=== PATIENT | male | born 1985 | race Caucasian/White ===

== ENCOUNTER 2025-03-06 09:05 | Outpatient (OUT) | payer OTHER, SELFPAY ==
--- OUTSIDE RECORDS SUMMARY | 2025-01-09 07:00 | XMS_ITS ---
Author Organization [facility] Address [address] [place] [address] Care Team Providers Care Clothes Shaker Name Role Phone Miguelangel Juliana Primary Care Provider [phone] Gabi Urbina [phone] REASON FOR VISIT BH F/U Encounters Encounter Location Date Provider Diagnosis [facility] [address] [place] [address] 01/09/2025 Juliana Means Plan Of Treatment Next Appt Details Provider Name:uJliana Means , 03/28/2025 10:00:00 AM, [address], [place], [address], Provider Name:Leah Cain, 0 04/04/2025 08:00:00 AM, [address] , [place], [address], Progress Notes * BERLIN JENNINGS ADOB:1985 (39 yo M)Acc No.[id number]:01/09/2025 BH F/U - Patient Patient: BERLIN MARION Wale Provider: BRITTNY Peacock :1985 A ge:39 Y S ex:Male Date:01/09/2025 Address:[address], [address] , [id number] Subjective: * Chief Complaints: * 1 . BH F/U. Objective: Therapeutic Interventions: Assessment: Plan: * Images: Care Plan Details* * Electronic signature of BRITTNY Johnson on 03/06/2025 at 09:08 AM EDT Sign off status: Pending * Provider: BRITTNY Peacock Date: 01/09/2025 Generated for Augustus saxena/Chandrakant/Missael on: 0 03/06/2025 09:08 AM EDT
--- OUTSIDE RECORDS SUMMARY | 2025-02-28 06:00 | XMS_ITS ---
Author Organization [facility] Address [address] [place] [address] Care Team Providers Care Telephone Services Sales Representative Name Role Phone MiguelangelShivJuliana Primary Care Provider Gabi Urbina [phone] REASON FOR VISIT F/U Encounters Encounter Location Date Provider Diagnosis [facility] [address] [place] [address] 02/28/2025 Juliana Means Major depressive disorder, recurrent episode with anxious distress F33.9 and Mood disorder F39 Assessments Encounter Date Diagnosis (ICD Code) Assessment Notes Treatment Notes Treatment Clinical Notes Section Notes 02/28/2025 Major depressive disorder, recurrent episode with anxious distress (ICD-10 - F33.9) 02/28/2025 Mood disorder (ICD-10 - F39) Plan Of Treatment Next Appt Details Provider Name:Juliana Means , 03/28/2025 10:00:00 AM, [address] [place], [address], Provider Name:Leah Cox, 0 04/04/2025 08:00:00 AM, [address] [facility] [place], [address], Progress Notes * BERLIN JENNINGS ADOB:1985 (39 yo M)Acc No.[id number]:02/28/2025 F/U - Patient Patient: BERLIN MARION Provider: BRITTNY Peacock :1985 A ge:39 Y S ex:Male Date:02/28/2025 Address:[address] [place] [address], [id number] Subjective: * Chief Complaints: * 1 . BH F/U. Objective: Therapeutic Interventions: Assessment: * Assessment: 1. M ajor depressive disorder, recurrent episode with anxious distress - F33.9 (Primary) ? 2 . M ood disorder - F39 Plan: * Images: Care Plan Details* Problem B H F/U Progress Note Present At Appointment: P atient Session Type: F elina to Face Start Time/End Time: 1 008 1150 42 mins Mental Status Examination Mood: C omments :engaged logical Affect: C ongruent;Appropriate Insight/Judgment: G ood Thought Process: U nremarkable Speech: N ormal Current Mental Status Normal : O riented x 4 Intervention Risk Assessment: P T denies all areas of risk. No contrary indications present.;Low risk Therapy Modality: b ehavior modification;solution focused Interventions: b uild rapport;cognitive challenging;cognitive refocusing;cognitive reframing;encourage expression of needs;exploration of relationship problems;exploration of coping skills;emotion regulation;healthy boundaries;supportive reflection;reflective listening;psycho-educationComments :Rapport building by BRITTNY allowed pt to reflect on last mth since session. Help Pt with pros cons of life choices and reframed perspective Response to Intervention: P t Progress: l ow Plan Recommended Frequency of Macario atment: b i-weekly Homework: e motion regulation;utilize supports;prosocials Medication Change: N /A * Electronic signature of BRITTNY Johnson on 03/06/2025 at 09:08 AM EDT Sign off status: Pending * Provider: BRITTNY Peacock Date: 0 02/28/2025 Generated for Augustus saxena/Chandrakant/Missael on: 03/06/2025 09:08 AM EDT
--- OUTSIDE RECORDS SUMMARY | 2025-03-06 09:09 | XMS_ITS | Encounter Summary ---
Author Organization [facility] Address [address] [place] [address] Phone Care Team Providers Care Account Representative Name Role Phone Catherine Quiroz MD Primary Care Provider [phone] Catherine Quiroz MD Primary Care Provider [phone] Brian Urbina DO Primary Care Provider [phone] Encounter Details Date Type Department Care Team (Late st Contact Info) Description 11/17/2023 Scanned Document [facility] [address] [place] [id number] Scanning, Generic Provider Social History Tobacco Use Types Packs/Day Years Used Date Smoking Tobacco: Never Smokeless Tobacco: Former Chew Alcohol Use Standard Drinks/Week Comments Not Asked 0 (1 standard drink = 0.6 oz pur e alcohol) socially Sex and Gender Information Value Date Recorded Sex Assigned at Not on file Legal Sex Male 5:16 AM EST Gender Identity Not on file Sexual Orientation Not on file documented as of this encounter Plan of Treatment Upcoming Encounters Date Type Department Care Team (Late st Contact Info) Description 09/28/2025 3:00 PM EST Office Visit [facility] [address] [place] [address] Mike Chavira MD [address] [place] [address] documented as of this encounter Visit Diagnoses Not on filedocumented in this encounter Care Teams Account Representative Relationship Specialty Start Date End Date Catherine Quiroz MD [address] [facility] [place] [address] PCP - General 09/14/19 12/21/23 Catherine Quiroz MD [address] [facility] [facility] [place] [address] PCP - General Family Medicine 12/22/23 02/02/25 Brian Urbina DO [address] [place] [address] PCP - General Family Medicine 02/03/25 documented as of this encounter
--- OUTSIDE RECORDS SUMMARY | 2025-03-06 09:09 | XMS_ITS | Clinical Summary ---
Author Organization [facility] Address [address] [place] [address] Phone Care Team Providers Care Customer Engineering Specialist Name Role Phone CiaraBrian morgan Primary Care Provider [phone] Allergies No known active allergies Medications cholecalciferol (Vitamin D-3) 50 mcg (2,000 unit) capsule Take 1 capsule (50 mcg) by mouth 2 times a day. Active colestipol (Colestid) 1 gram tablet Take 1 tablet (1 g) by mouth 2 times a day. Active cyclobenzaprine (Flexeril) 10 mg tablet Take 1 tablet (10 mg) by mouth 3 times a day. 2 Active dicyclomine (Bentyl) 20 mg tablet Take 1 tablet (20 mg) by mouth 3 times a day. Active loperamide (Imodium A-D) 2 mg capsule Take 1 capsule (2 mg) by mouth if needed. Active ocrelizumab (Ocrevus) 30 mg/mL Infuse 20 mL (600 mg) into a venous catheter every 6 months. twice a year Active ondansetron (Zofran) 4 mg tablet Take 2 tablets (8 mg) by mouth if needed. Active pantoprazole (ProtoNix) 40 mg EC tablet Take 1 tablet (40 mg) by mouth once daily. 1 Active multivit-min/fe rrous fumarate (MULTI VITAMIN ORAL) Take 1 tablet by mouth once daily. Active naproxen sodium (Anaprox) 550 mg tablet Take 1 tablet (550 mg) by mouth once daily as needed for mild pain (1 - 3). Active ubrogepant (Ubrelvy) 100 mg tablet tablet Take 1 tablet (100 mg) by mouth once daily. Active hydrOXYzine pamoate (Vistaril) 50 mg capsule Take 1 capsule (50 mg) by mouth every 6 hours if needed. Active ARIPiprazole (Abilify) 15 mg tablet Take 1 tablet (15 mg) by mouth once daily. Active tamsulosin (Flomax) 0.4 mg 24 hr capsule Take 1 capsule (0.4 mg) by mouth once daily. Active atomoxetine (Strattera) 60 mg capsule Take 1 capsule (60 mg) by mouth once daily. Swallow capsule whole; do not open. If opened accidentally, do not touch eyes; wash hands immediately (product is an eye irritant). Active FLUoxetine (PROzac) 10 mg capsule Take 1 capsule (10 mg) by mouth early in the morning.. 5 Active Myrbetriq 50 mg tablet extended release 24 hr 24 hr tablet Take 1 tablet (50 mg) by mouth once daily. Active QUEtiapine (SEROquel) 25 mg tablet Take 1 tablet (25 mg) by mouth once daily at bedtime. Active midodrine (Proamatine) 5 mg tabletIndicatio ns:H/O orthostatic hypotension Take 1 tablet (5 mg) by mouth 3 times daily (morning, midday, late afternoon). 270 tablet 3 5 026 Active midodrine (Proamatine) 5 mg tabletIndicatio ns:H/O orthostatic hypotension Take 1 tablet (5 mg) by mouth 3 times daily (morning, midday, late afternoon). 5 025 Discontin ued(Reord er) Active Problems Problem Noted Date Diagnosed Date Adult BMI 33.0-33.9 kg/sq m 12/22/2023 Never smoked tobacco 12/22/2023 Autonomic failure 06/16/2023 Dizziness 06/16/2023 Dyspnea on exertion 06/16/2023 H/O orthostatic hypotension 06/16/2023 Multiple sclerosis (Multi) 06/16/2023 Palpitations 06/16/2023 Migraine 06/16/2023 Resolved Problems Problem Noted Date Diagnosed Date Resolved Date Class 2 obesity with body ma ss index (BMI) of 35.0 to 35.9 in adult 06/16/2023 06/17/2023 Encounters Date Type Department Care Team Description 03/03/[address] [address] Quita Eagle LPN H/O orthostatic hypotension 02/03/2025 11:20 AM EDT Office Visit [address] [address] Mike Chavira MD H/O orthostatic hypotension (Primary Dx); Palpitations; Adult BMI 33.0-33.9 kg/sq m; Multiple sclerosis (Multi); Autonomic failure; Dizziness; Never smoked tobacco 02/03/2025 Travel 01/30/2025 Scanned Document [facility] [address] [place] [id number] Scanning, Generic Provider from Last 3 Months Immunizations Immunization Administration Dates Next Due Flu vaccine (IIV4), preservative free *Check age /dose* 06/02/2022 Influenza, seasonal, injectable 06/25/2022 Family History Medical History Relation Name Comments Heart attack Father Nephrolithiasis Father Diabetes Mother Hyperlipidemia Mother Hypertension Mother Thrombosis Mother heart problem Mother Relation Name Status Comments Father Mother Social History Tobacco Use Types Packs/Day Years Used Date Smoking Tobacco: Never Smokeless Tobacco: Former Chew Tobacco Cessation:Counseling Given: Not Answered Alcohol Use Standard Drinks/Week Comments Yes 0 (1 standard drink = 0.6 oz pur e alcohol) socially Sex and Gender Information Value Date Recorded Sex Assigned at Not on file Legal Sex Male 5:16 AM EST Gender Identity Not on file Sexual Orientation Not on file Last Filed Vital Signs Vital Sign Reading Time Taken Comments Blood Pressure 98/80 02/03/2025 11:42 AM EDT Pulse 64 02/03/2025 11:38 AM EDT Temperature - - Respiratory Rate - - Oxygen Saturation - - Inhaled Oxygen Concentration - - Weight 144 kg (317 lb 6.4 oz) 02/03/2025 11:38 A M EDT Height 200.7 cm (6' 7 ) 02/03/2025 11:38 AM EDT Body Mass Index 35.76 02/03/2025 11:38 AM EDT Plan of Treatment Upcoming Encounters Date Type Department Care Team (Late st Contact Info) Description 09/28/2025 3:00 PM EST Office Visit [facility] [address] [place] [address] Mike Chavira MD [address] [place] [address] Health Maintenance Due Date Last Done Comments MMR Vaccines (1 of 1 - Standard series) 1985 Varicella Vaccines (1 of 2 - 13+ 2-dose series) 1997 Hepatitis C Screening 2002 Hepatitis B Vaccines (1 of 3 - 19+ 3-dose series) 2003 DTaP/Tdap/Td Vaccines (2 - Tdap) 05/17/2005 05/16/2005 Diabetes Screening 06/27/2022 06/27/2021 COVID-19 Vaccine ( season) 2024 07/01/2023, 06/02/2022, 09/03/2021, Additional history exists Yearly Adult Physical 10/13/2025 10/12/2024 Lipid Panel 01/30/2030 01/30/2025 Zoster Vaccines (1 of 2) 2034 Influenza Vaccine Completed 10/12/2024, , 06/25/2022, Additional history exists HIV Screening Completed 01/30/2025 HIB Vaccines Aged Out No longer eligi ble based on patient's age to complete this topic HPV Vaccines Aged Out No longer eligi ble based on patient's age to complete this topic Hepatitis A Vaccines Aged Out No long er eligible based on patient's age to complete this topic IPV Vaccines Aged Out No longer eligi ble based on patient's age to complete this topic Meningococcal Vaccine Aged Out No wendy mariah eligible based on patient's age to complete this topic Pneumococcal Vaccine: Pediatrics and At-Risk Adult Patients Aged Out No longer eligible based on patient's age to complete this topic Rotavirus Vaccines Aged Out No longer eligible based on patient's age to complete this topic Insurance [facility] Care Teams Customer Engineering Specialist Relationship Specialty Start Date End Date Brian Urbina DO [address] [place] [address] PCP - General Family Medicine 02/03/25
--- OUTSIDE RECORDS SUMMARY | 2025-03-06 09:09 | XMS_ITS | Encounter Summary ---
Author Organization [facility] Address [address] [place] [address] Phone Care Team Providers Care Pipe Fitter Ammonia Name Role Phone Catherine Quiroz MD Primary Care Provider [phone] Brian Urbina DO Primary Care Provider [phone] Encounter Details Date Type Department Care Team (Late st Contact Info) Description 02/25/2024 Scanned Document [facility] [address] [place] [id number] Scanning, Generic Provider Social History Tobacco Use Types Packs/Day Years Used Date Smoking Tobacco: Never Smokeless Tobacco: Former Chew Alcohol Use Standard Drinks/Week Comments Yes 0 [...] Description 09/28/2025 3:00 PM EST Office Visit [facility] [address] [facility] [address] [place] [address] Mike Chavira MD [address] [facility] [address] [place] [address] documented as of this encounter Visit Diagnoses Not on filedocumented in this encounter Care Teams Pipe Fitter Ammonia Relationship Specialty Start Date End Date Catherine Quiroz MD [address] [place] [address] PCP - General Family Medicine 12/22/23 02/02/25 Brian Urbina DO [address] [place] [address] PCP - General Family Medicine 02/03/25 documented as of this encounter
--- OUTSIDE RECORDS SUMMARY | 2025-03-06 09:09 | XMS_ITS | Patient Health Record ---
Author Organization [facility] Address [address] [place] [address] Care Team Providers Care Membership Coordinator Name Role Phone Juliana Means Primary Care Provider Ciara Gabi Unavailable [phone] Leah Cain Unavailable [phone] Allergies Allergen (clinical drug ingredient) Drug/Non Drug Allergy documented on EMR Reaction Allergy Type Onset Date Status Pollen Pollen Unknown Allergy Active Reason For Referral No Information Medications Medication SIG (Take, Route, Frequency, Duration) Notes Start Date End Date Status Reglan 10 MG 1 tablet Orally four times a day (qid) Not-Taking Dicyclomine HCl 20 MG 1 tablet Orally Th ree times a day Active Flaxseed Oil Not-Lamonte ing Potassium Gluconate 550 MG 1 tablet Orally daily Not-Taking Strattera 25 MG 1 capsule Orally Onc e a day for 30 day(s) 02/25/2023 Not-Taking QUEtiapine Fumarate 25 MG 1 tablet at be dtime Orally Once a day 09/05/2024 Active Vitamin D3 Active Colestid Active Atomoxetine HCl 60 MG 1 capsule Orally O nce a day Active Pantoprazole Sodium 40 MG 1 tablet Orall y Once a day Active Sentry Active pyRIDostigmine [place] 60 MG 1 tablet Orally twice a day (bid) Active Midodrine HCl 5 MG 2tablet Orally as needed Active Ocrevus 300 MG/10ML as directed Intravenous once a year Active Verapamil HCl ER 180 MG 1 tablet Orally Once a day Active Ubrelvy 100 MG 1 tablet Orally as needed (prn) Active Biotin Not-Taking Cyclobenzaprine HCl 10 MG 1 tablet at be dtime as needed Orally as needed (prn) Active Ondansetron 4 MG 1 tablet on the tong ue and allow to dissolve Orally twice a day (bid) as needed (prn) Active Loperamide HCl 2 MG 2 tablet Orally twic e a day (bid) Active FLUoxetine HCl 10 MG 1 capsule Orally On ce a day for 30 days 07/12/2024 Active Naproxen 500 MG 1 tablet with food o r milk Orally Twice a day Active Colestipol HCl 1 GM 2 tablets Orally daily Active hydrOXYzine Pamoate 50 MG 1 to 2 capsule s Orally every six hours for 30 days Active ARIPiprazole 15 MG 1 tablet Orally Once a day for 90 days Active busPIRone HCl 15 MG 1 tablet Orally Twic e a day Not-Taking Social History Tobacco Use: Social History Observation Description Date Details (start date - stop date) Former Smoker NA - NA Tobacco Screen: Question Answer Notes Are you a: former smoker How long has it been since you last smoked? 6-12 months Alcohol Screening: Question Answer Notes Did you have a drink containing alcohol in the p ast year? No Points 0 Interpretation Negative Depression Screening (PHQ-9): Question Answer Notes Little interest or pleasure in doing things Near ly every day Feeling down, depressed, or hopeless Nearly ever y day Trouble falling or staying asleep, or sleeping t oo much Nearly every day Feeling tired or having little energy Nearly oli ry day Poor appetite or overeating Nearly every day Feeling bad about yourself-o r that you are a failure or have let yourself or your family down Nearly every day Trouble concentrating on thi ngs, such as reading the newspaper or watching television Nearly every day Moving or speaking so slowly that other people could have noticed. Or the opposite being so fidgety or restless that you have been moving around a lot more than usual Not at all Thoughts that you would be b ghislaine off , or of hurting yourself in some way Not at all Total Score 21 Intepretation Severe Depression Problems Problem Type SNOMED Code ICD Code Onset Dates Problem Status W/U Status Risk Notes Problem Mood disorder (06900588) Mood disorder (F39) Active confirmed Problem Obese class II (36465932330753 5) BMI 35.0-35.9,adult (Z68.35) Active confirmed Problem Body mass index 30.00 to 34.99 (85308310023949 7) BMI 34.0-34.9,adult (Z68.34) Active confirmed Problem Obese class I (57459460108274 7) BMI 33.0-33.9,adult (Z68.33) Active confirmed Problem BMI 30+ - obesity (384879065) BMI 32.0-32.9,adult (Z68.32) Active confirmed Problem Body mass index 30.00 to 34.99 (79926241901269 7) BMI 31.0-31.9,adult (Z68.31) Active confirmed Problem Body mass index 30+ - obesity (620182131) BMI 30.0-30.9,adult (Z68.30) Active confirmed Problem Recurrent major depression (38746795) Major depressive disorder, recurrent episode with anxious distress (F33.9) Active confirmed Vital Signs Heart Rate 89 /min 01/03/2025 Blood pressure diastolic 66 mm Hg 01/03/2025 Oximetry 97 % 01/03/2025 Height 6 ft 7 inches in 01/03/2025 Blood pressure systolic 116 mm Hg 01/03/2025 Weight 310.2 lbs 01/03/2025 BMI 34.94 kg/m2 01/03/2025 Encounters Encounter Location Date Provider Diagnosis [facility] [address] [place] [address] 04/13/2024 Leah Cain Mood disorder [address] [place] [address] 07/01/2024 Leah Cain Mood disorder [address] [place] [address] 07/26/2024 Leah Cain [facility] [address] [place] [address] 08/18/2024 Leah Cain Mood disorder [address] [place] [address] 09/02/2024 Leah Cain Mood disorder [address] [facility] [address] [place] [address] 09/05/2024 Leah Cain Mood disorder [address] [place] [address] 09/21/2024 Leah Cain Mood disorder [facility] [address] [place] [address] 11/14/2024 Leah Cain Mood disorder [address] [place] [address] 12/01/2024 Leah Cain Mood disorder [place] [address] [place] [address] 12/26/2024 Leah Cain Mood disorder [place] [address] [place] [address] 01/24/2025 Leah Cain Mood disorder [place] [address] [place] [address] 01/31/2025 Leah Cain Mood disorder [place] [address] [place] [address] 02/10/2025 Leah Cain Mood disorder [place] [address] [place] [address] 02/21/2025 Juliana Means [place] [address] [place] [address] 04/12/2024 Juliana Means Major depressive disorder, recurrent episode with anxious distress F33.9 [facility] [address] [place] [address] 04/26/2024 Juliana Means Major depressive disorder, recurrent episode with anxious distress F33.9 and Mood disorder [place] [address] [place] [address] 02/28/2025 Juliana Means Major depressive disorder, recurrent episode with anxious distress F33.9 and Mood disorder [address] [place] [address] 05/10/2024 Juliana Means Mood disorder [address] [place] [address] 05/31/2024 Juliana Means Major depressive disorder, recurrent episode with anxious distress F33.9 [facility] [address] [place] [address] 06/20/2024 Juliana Means Major depressive disorder, recurrent episode with anxious distress F33.9 [facility] [address] [place] [address] 07/05/2024 Juliana Means Mood disorder F39 and Major depressive disorder, recurrent episode with anxious distress F33.9 [facility] [address] [place] [address] 07/20/2024 Juliana Means Major depressive disorder, recurrent episode with anxious distress F33.9 [facility] [address] [place] [address] 08/03/2024 Juliana Means Major depressive disorder, recurrent episode with anxious distress F33.9 [facility] [address] [place] [address] 08/19/2024 Juliana Means Mood disorder F39 [facility] [address] [place] [address] 09/02/2024 Juliana Means Major depressive disorder, recurrent episode with anxious distress F33.9 [facility] [address] [place] [address] 09/20/2024 Juliana Means Major depressive disorder, recurrent episode with anxious distress F33.9 [facility] [address] [place] [address] 09/30/2024 Juliana Means Mood disorder F39 [facility] [address] [place] [address] 10/14/2024 Juliana Means Mood disorder F39 [facility] [address] [place] [address] 10/28/2024 Juliana Means Major depressive disorder, recurrent episode with anxious distress F33.9 [facility] [address] [place] [address] 11/24/2024 Juliana Means Major depressive disorder, recurrent episode with anxious distress F33.9 and Mood disorder F39 [facility] [address] [place] [address] 01/30/2025 Juliana Means Major depressive disorder, recurrent episode with anxious distress F33.9 [facility] [address] [address] 03/08/2024 Leah Cain Mood disorder F39 [facility] [place] [address] 05/03/2024 Leah Cain Mood disorder F39 and BMI 33.0-33.9,adult Z68.33 [facility] [address] [facility] [facility] [place] [address] 01/03/2025 Leah Cain Mood disorder F39 [facility] [address] [facility] [facility] [place] [address] 10/11/2024 Leah Cain Mood disorder F39 [facility] [address] [facility] [place] [address] 07/12/2024 Leah Cain Mood disorder F39 Assessments Encounter Date Diagnosis (ICD Code) Assessment Notes Treatment Notes Treatment Clinical Notes Section Notes 03/08/2024 Mood disorder (ICD-10 - F39) Recommended treatment for Bipolar disorder includes FDA approved and OFF label medications: second generation antipsychotics and mood stabilizers. Discussed life threatening side effect of Lamotrigine. Pt is to monitor for new skin rashes or sensation of a sunburn or itchiness or redness, mouth sores or sores in mucus membranes, and call provider immediately and or go to ER, and stop the medication. Second generation antipsychotic medications can cause headache, drowsiness, agitation, dizziness, nausea, or extrapyramidal symptoms such as tremors, muscle spasms, slowness of movement or jerking of muscles. The patient verbalizes understanding with all questions answered thoroughly and is in agreement with treatment plan. Continue current treatment. . Call for problems GOALS: . Maintain medication regimen _Improve mood stability _Improve anxiety control _Improve social and interpersonal functioning Patient/Guardian will call sooner if symptoms worsen. Patient understands to go to ER if needed if symptoms become severe. Crisis Intervention plan was discussed and agreed upon. Patient/Guardian will call 911 in case of emergency. Emergency contact information was provided to the patient/guardian. follow up 2 months Pharmacological management: . Alternative medication plans were discussed with the patient/guardian. All relevant side effects and potential adverse effects were discussed with the patient/guardian. Standard cautions and potential benefits were discussed. Patient/Guardian consented to the start/continuation of the treatment. 05/03/2024 Mood disorder (ICD-10 - F39) Recommended treatment for Bipolar disorder includes FDA approved and OFF label medications: second generation antipsychotics and mood stabilizers. Discussed life threatening side effect of Lamotrigine. Pt is to monitor for new skin rashes or sensation of a sunburn or itchiness or redness, mouth sores or sores in mucus membranes, and call provider immediately and or go to ER, and stop the medication. Second generation antipsychotic medications can cause headache, drowsiness, agitation, dizziness, nausea, or extrapyramidal symptoms such as tremors, muscle spasms, slowness of movement or jerking of muscles. The patient verbalizes understanding with all questions answered thoroughly and is in agreement with treatment plan. Continue current treatment. Call for problems . GOALS: . Maintain medication regimen _Improve mood stability _Improve anxiety control _Improve social and interpersonal functioning Patient/Guardian will call sooner if symptoms worsen. Patient understands to go to ER if needed if symptoms become severe. Crisis Intervention plan was discussed and agreed upon. Patient/Guardian will call 911 in case of emergency. Emergency contact information was provided to the patient/guardian. follow up 2 months. Pharmacological management: . Alternative medication plans were discussed with the patient/guardian. All relevant side effects and potential adverse effects were discussed with the patient/guardian. Standard cautions and potential benefits were discussed. Patient/Guardian consented to the start/continuation of the treatment. 07/12/2024 Mood disorder (ICD-10 - F39) Recommended treatment for Mood disorder includes FDA approved and OFF label medications: second generation antipsychotics and mood stabilizers. Discussed life threatening side effect of Lamotrigine. Pt is to monitor for new skin rashes or sensation of a sunburn or itchiness or redness, mouth sores or sores in mucus membranes, and call provider immediately and or go to ER, and stop the medication. Second generation antipsychotic medications can cause headache, drowsiness, agitation, dizziness, nausea, or extrapyramidal symptoms such as tremors, muscle spasms, slowness of movement or jerking of muscles. The patient verbalizes understanding with all questions answered thoroughly and is in agreement with treatment plan. Continue current treatment. Call for problems . GOALS: . Maintain medication regimen _Improve mood stability _Improve anxiety control _Improve social and interpersonal functioning Patient/Guardian will call sooner if symptoms worsen. Patient understands to go to ER if needed if symptoms become severe. Crisis Intervention plan was discussed and agreed upon. Patient/Guardian will call 911 in case of emergency. Emergency contact information was provided to the patient/guardian. follow up 3 months Pharmacological management: . Alternative medication plans were discussed with the patient/guardian. All relevant side effects and potential adverse effects were discussed with the patient/guardian. Standard cautions and potential benefits were discussed. Patient/Guardian consented to the start/continuation of the treatment. 10/11/2024 Mood disorder (ICD-10 - F39) Recommended treatment for Mood disorder includes FDA approved and OFF label medications: second generation antipsychotics and mood stabilizers. Discussed life threatening side effect of Lamotrigine. Pt is to monitor for new skin rashes or sensation of a sunburn or itchiness or redness, mouth sores or sores in mucus membranes, and call provider immediately and or go to ER, and stop the medication. Second generation antipsychotic medications can cause headache, drowsiness, agitation, dizziness, nausea, or extrapyramidal symptoms such as tremors, muscle spasms, slowness of movement or jerking of muscles. The patient verbalizes understanding with all questions answered thoroughly and is in agreement with treatment plan. Continue current treatment. . Call for problems . GOALS: . Maintain medication regimen _Improve mood stability _Improve anxiety control _Improve social and interpersonal functioning Patient/Guardian will call sooner if symptoms worsen. Patient understands to go to ER if needed if symptoms become severe. Crisis Intervention plan was discussed and agreed upon. Patient/Guardian will call 911 in case of emergency. Emergency contact information was provided to the patient/guardian. follow up 3 months Pharmacological management: . Alternative medication plans were discussed with the patient/guardian. All relevant side effects and potential adverse effects were discussed with the patient/guardian. Standard cautions and potential benefits were discussed. Patient/Guardian consented to the start/continuation of the treatment. 01/03/2025 Mood disorder (ICD-10 - F39) Recommended treatment for mood Based on DSM V, this patient meets the criteria for the diagnosis of: _ . Recommended treatment is: _ . The patient verbalizes understanding with all questions answered thoroughly and is in agreement with treatment plan. .disorder includes FDA approved and OFF label medications: second generation antipsychotics and mood stabilizers. Discussed life threatening side effect of Lamotrigine. Pt is to monitor for new skin rashes or sensation of a sunburn or itchiness or redness, mouth sores or sores in mucus membranes, and call provider immediately and or go to ER, and stop the medication. Second generation antipsychotic medications can cause headache, drowsiness, agitation, dizziness, nausea, or extrapyramidal symptoms such as tremors, muscle spasms, slowness of movement or jerking of muscles. Stable The patient verbalizes understanding with all questions answered thoroughly and is in agreement with treatment plan. Continue current treatment. Call for problems . GOALS: . Maintain medication regimen _Improve mood stability _Improve anxiety control _Improve social and interpersonal functioning Patient/Guardian will call sooner if symptoms worsen. Patient understands to go to ER if needed if symptoms become severe. Crisis Intervention plan was discussed and agreed upon. Patient/Guardian will call 911 in case of emergency. Emergency contact information was provided to the patient/guardian. follow up 3 months Pharmacological management: . Alternative medication plans were discussed with the patient/guardian. All relevant side effects and potential adverse effects were discussed with the patient/guardian. Standard cautions and potential benefits were discussed. Patient/Guardian consented to the start/continuation of the treatment. 01/24/2025 Mood disorder (ICD-10 - F39) 01/30/2025 Major depressive disorder, recurrent episode with anxious distress (ICD-10 - F33.9) 01/31/2025 Mood disorder (ICD-10 - F39) 02/10/2025 Mood disorder (ICD-10 - F39) 10/14/2024 Mood disorder (ICD-10 - F39) 10/28/2024 Major depressive disorder, recurrent episode with anxious distress (ICD-10 - F33.9) 11/14/2024 Mood disorder (ICD-10 - F39) 07/20/2024 Major depressive disorder, recurrent episode with anxious distress (ICD-10 - F33.9) 08/03/2024 Major depressive disorder, recurrent episode with anxious distress (ICD-10 - F33.9) 08/18/2024 Mood disorder (ICD-10 - F39) 08/19/2024 Mood disorder (ICD-10 - F39) 09/02/2024 Major depressive disorder, recurrent episode with anxious distress (ICD-10 - F33.9) 09/02/2024 Mood disorder (ICD-10 - F39) 09/05/2024 Mood disorder (ICD-10 - F39) 09/20/2024 Major depressive disorder, recurrent episode with anxious distress (ICD-10 - F33.9) 09/21/2024 Mood disorder (ICD-10 - F39) 09/30/2024 Mood disorder (ICD-10 - F39) 05/03/2024 BMI 33.0-33.9,adult (ICD-10 - Z68.33) . Discussed lifestyle/diet changes to help improve BMI. Recommend increasing activity, reducing portion sizes, limiting carbohydrates, increasing protein as appropriate. Discussed referral to application software engineer if problem persists. . 05/10/2024 Mood disorder (ICD-10 - F39) 05/31/2024 Major depressive disorder, recurrent episode with anxious distress (ICD-10 - F33.9) 06/20/2024 Major depressive disorder, recurrent episode with anxious distress (ICD-10 - F33.9) 07/01/2024 Mood disorder (ICD-10 - F39) 07/05/2024 Mood disorder (ICD-10 - F39) 04/12/2024 Major depressive disorder, recurrent episode with anxious distress (ICD-10 - F33.9) 04/13/2024 Mood disorder (ICD-10 - F39) 04/26/2024 Major depressive disorder, recurrent episode with anxious distress (ICD-10 - F33.9) 11/24/2024 Major depressive disorder, recurrent episode with anxious distress (ICD-10 - F33.9) 12/01/2024 Mood disorder (ICD-10 - F39) 12/26/2024 Mood disorder (ICD-10 - F39) 02/28/2025 Major depressive disorder, recurrent episode with anxious distress (ICD-10 - F33.9) 04/26/2024 Mood disorder (ICD-10 - F39) 07/05/2024 Major depressive disorder, recurrent episode with anxious distress (ICD-10 - F33.9) 11/24/2024 Mood disorder (ICD-10 - F39) 02/28/2025 Mood disorder (ICD-10 - F39) 01/03/2025 Other Plan Of Treatment Next Appt Details Provider Name:Juliana Means , 03/28/2025 10:00:00 AM, [address], [place], [address], Provider Name:Leah Cain, 0 04/04/2025 08:00:00 AM, [address] [facility], [place], [address], Insurance Providers Payer Name Payer Address Payer Phone Subscriber Number Group Number Insured Name Patient Relationship to Insured Coverage Start Date Coverage End Date [employer] [place] Medicaid [address] CLAIMS DEPT [place] [phone] [id number] B[employer]ENN[place] Self - patient is the insured 3 [facility] [address] [place] [address] [phone] [id number] B[place]ENN[place] Self - patient is the insured 3 [facility] [employer] [address] [place] [address] [id number] BERLIN JENNINGS Self - patient is the insured 2 3 [employer] after [employer] [address] [place] [address] [phone] [id number] BERLIN JENNINGS Self - patient is the insured 2 3 Medical (General) History Medical History History ICD Code muscle spasm orthostatic dizziness acute hearing loss tinnitus, left insomnia, transient multiple sclerosis Surgical History Surgery Date(Month/Year) colonoscopy cyst removal right arm reset labrum repair t&A cholecystectomy
--- OUTSIDE RECORDS SUMMARY | 2025-03-06 09:09 | XMS_ITS | Encounter Summary ---
Author Organization [facility] Address [address] [place] [address] Phone Care Team Providers Care Roll Or Tape Edge Machine Operator Name Role Phone Catherine Quiroz MD Primary Care Provider [phone] Brian Urbina DO Primary Care Provider [phone] Encounter Details Date Type Department Care Team (Late st Contact Info) Description 01/30/2025 Scanned Document [facility] [address] [place] [id number] Scanning, Generic Provider Social History Tobacco Use [...] Office Visit [facility] [address] [facility] [address] [place] [address] Mike Chavira MD [address] [facility] [address] [place] [address] documented as of this encounter Visit Diagnoses Not on filedocumented in this encounter Care Teams Roll Or Tape Edge Machine Operator Relationship Specialty Start Date End Date Catherine Quiroz MD [address] [place] [address] PCP - General Family Medicine 12/22/23 02/02/25 Brian Urbina DO [address] [place] [address] PCP - General Family Medicine 02/03/25 documented as of this encounter
--- OUTSIDE RECORDS SUMMARY | 2025-03-06 09:09 | XMS_ITS | Encounter Summary ---
Author Organization [facility] Address [address] 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 No / Unsure 02/03/2025 11:09 AM EDT documented as of this encounter Plan of Treatment Upcoming Encounters Date Type Department Care Team (Late Contact Info) Description 09/28/2025 3:00 PM EST Office Visit [address] [place] [address] Mike Chavira MD [address] [facility] [address] [place] [address] documented as of this encounter Visit Diagnoses Diagnosis H/O orthostatic hypotension documented in this encounter Care Teams Java Developer Relationship Specialty Start Date End Date Brian Urbina DO [address] [place] [address] PCP - General Family Medicine 02/03/25 documented as of this encounter
--- OUTSIDE RECORDS SUMMARY | 2025-03-06 09:09 | XMS_ITS | Clinical Summary ---
Author Organization [facility] Address [address] [place] [address] Care Team Providers Care Loan Approver Name Role Phone Catherine Quiroz MD Primary Care Provider [phone] Allergies Active Allergy Reactions Criticality Noted Date Comments Pollen Extract Other (See Comments) 08/04/2018 sneezing Medications cyclobenzaprine (FLEXERIL) 10 MG tablet Take 10 mg by mouth 3 times daily as needed for Muscle spasms Active NONFORMULARY Take 2 tablets by mouth every 6 hours as needed Alleve Active promethazine (PHENERGAN) 25 MG tablet Take 1 tablet by mouth every 6 hours as needed for Nausea 30 tablet 08/19/2018 Active naproxen (NAPROSYN) 125 MG/5ML suspension Take 125 mg by mouth 2 times daily Active Active Problems Patient Care Coordination No te Formatting of this note is d ifferent from the original. MBS Checklist [facility] Weight Management Surgeon: Connie Procedure: sleeve ERAS Protocol Ht 6'7 Start wt470 ITEM ORDERED DONE NOTES LAB WORK- DONE TREATED [x] [] [] [] SLEEP STUDY CPAP [x] [] [] [] PSYCH EVAL [x] [] EGD H. PYLORI-TREATED STOOL ORDERED [x] [] [] [] [] [] GBUS [] [] UGI [] [] BMI GT 50, Give Lovenox Rx [x] [] CARDIAC CLEARANCE [] [] MEDICAL CLEARANCE [x] [] PULMONARY CLEARANCE [x] [] HEMATOLOGY CLEARANCE [] [] NEPHROLOGY CLEARANCE [] [] NEUROLOGY CLEARANCE [] [] UROLOGY CLEARANCE [] [] 2 WEEK PREOP DIET [x] [] 4 WEEK PREOP DIET [] [] LETTER OF MEDICAL NECESSITY [x] [] NICOTINE LEVEL AT 4 MONTHS [] [] PAIN MANAGEMENT CONSULT [] [] INTRO CLASS [x] [] EXERCISE LOG [x] [] PRE OPERATIVE CLASS [x] [] SUPPORT GROUP ATTENDED [x] [] 2 YEAR WEIGHT HISTORY [x] [] NUTRITION GOALS [x] [] SMOKING CESSATION [] [] OTHER: [] [] Problem Noted Date Diagnosed Date Cholelithiasis with biliary obstruction 08/17/20 18 Cholelithiasis and acute cholecystitis with obst ruction 08/17/2018 Chronic cholecystitis with calculus Family History Medical History Relation Name Comments Diabetes Mother High Blood Pressure Mother Relation Name Status Comments Father Alive Mother Alive Social History Tobacco Use Types Packs/Day Years Used Date Smoking Tobacco: Never Smokeless Tobacco: Current Chew Alcohol Use Standard Drinks/Week Comments Yes 0 (1 standard drink = 0.6 oz pur e alcohol) 1 drink weekly Sex and Gender Information Value Date Recorded Sex Assigned at Not on file Legal Sex Male 11:32 PM EST Gender Identity Not on file Sexual Orientation Not on file Last Filed Vital Signs Vital Sign Reading Time Taken Comments Blood Pressure 142/84 10/21/2018 2:51 PM EST Pulse 70 09/02/2018 1:02 PM EST Temperature 36.7 C (98 F) 09/02/2018 1:02 PM EST Respiratory Rate 20 09/02/2018 1:02 PM EST Oxygen Saturation 96% 08/19/2018 8:00 AM EST Inhaled Oxygen Concentration - - Weight 215 kg (474 lb) 10/21/2018 2:51 PM EST Height 200.7 cm (6' 7.02 ) 10/21/2018 2:51 PM ES T Body Mass Index 53.38 10/21/2018 2:51 PM EST Plan of Treatment Not on file Insurance MEDICAID [place] Advance Directives * Full Code (Latest Code Status on File) Date Activated Date Inactivated Comments 08/17/2018 1:57 PM 08/19/2018 11:41 AM Care Teams Loan Approver Relationship Specialty Start Date End Date Catherine Quiroz MD PCP - General Family Medicine 08/04/18
--- OUTSIDE RECORDS SUMMARY | 2025-03-06 09:09 | XMS_ITS | Encounter Summary ---
Author Organization [facility] Address [address] [place] [address] Phone Care Team Providers Care Solids Control Technician Name Role Phone Catherine Quiroz MD Primary Care Provider [phone] Catherine Quiroz MD Primary Care Provider [phone] Brian Urbina DO Primary Care Provider [phone] Encounter Details Date Type Department Care Team (Late st Contact Info) Description 07/02/2022 Orders Only [facility] [address] [place] [address] Conversion, Onbase Social History Tobacco Use Types Packs/Day Years Used Date Smoking Tobacco: Never Assessed Sex and Gender Information Value Date Recorded Sex Assigned at Not on file Legal Sex Male 5:16 AM EST Gender Identity Not on file Sexual Orientation Not on file documented as of this encounter Plan of Treatment Upcoming Encounters Date Type Department Care Team (Late st Contact Info) Description 09/28/2025 3:00 PM EST Office Visit [facility] [address] [facility] [address] [place] [phone] Mike Chavira MD [address] [facility] [address] [place] [address] Scheduled Orders Name Type Priority Associated Diagnoses Orde r Schedule OUTSIDE LAB SCAN Lab Ordered: 07/02/2022 OUTSIDE LAB SCAN Lab Ordered: 07/02/2022 documented as of this encounter Visit Diagnoses Not on filedocumented in this encounter Care Teams Solids Control Technician Relationship Specialty Start Date End Date Catherine Quiroz MD [address] [facility] [place] [address] PCP - General 09/14/19 12/21/23 Catherine Quiroz MD [address] [facility] [place] [address] PCP - General Family Medicine 12/22/23 02/02/25 Brian Urbina DO [address] [place] [address] PCP - General Family Medicine 02/03/25 documented as of this encounter
--- OUTSIDE RECORDS SUMMARY | 2025-03-06 09:09 | XMS_ITS | Encounter Summary ---
Author Organization [facility] Address [address] [place] [address] Phone Care Team Providers Care Community Assistant Name Role Phone Catherine Quiroz MD Primary Care Provider [phone] Catherine Quiroz MD Primary Care Provider [phone] Brian Urbina DO Primary Care Provider [phone] Encounter Details Date Type Department Care Team (Late st Contact Info) Description 01/21/2022 Orders Only [facility] [address] [place] [address] Conversion, Onbase Social History Tobacco Use Types [...] Description 09/28/2025 3:00 PM EST Office Visit [facility] [address] [facility] [address] [place] [address] Mike Chavira MD [address] [facility] [address] [place] [address] Scheduled Orders Name Type Priority Associated Diagnoses Orde r Schedule OUTSIDE LAB SCAN Lab Ordered: 01/21/2022 documented as of this encounter Visit Diagnoses Not on filedocumented in this encounter Care Teams Community Assistant Relationship Specialty Start Date End Date Catherine Quiroz MD [address] [place] [address] [place] [address] PCP - General 09/14/19 12/21/23 Catherine Quiroz MD [address] [facility] [place] [address] PCP - General Family Medicine 12/22/23 02/02/25 Brian Urbina DO [address] [place] [address] PCP - General Family Medicine 02/03/25 documented as of this encounter
--- NOTE | 2025-03-06 09:19 | ECG_ITS ---
[facility] Test Date: 2025-03-06 Pat Name: BERLIN JENNINGS Department: Room: - Gender: Male Cro: : 1985 Requested By: ROSEANNA OLIVO Order Number: [id number] Reading MD: NIKOLE NDIAYE M.D. Measurements Intervals [place] Rate: 60 P: 32 RI: 159 QRS: 32 QRSD: 121 T: 43 QT: 418 QTc: 421 Interpretive Statements SINUS RHYTHM MODERATE INTRAVENTRICULAR CONDUCTION DELAY [110+ ms QRS DURATION] Borderline ECG Compared to ECG 02/03/2021 20:59:12 No significant changes Electronically Signed On 03-06-2025 18:19:22 EDT by NIKOLE NDIAYE M.D.
[2025-03-06 10:16] LABS: Basophils Percent Auto 0.4 % (0.2-2.0); Eosinophils Absolute Auto 0.3 10^3/uL (0.0-0.7); Eosinophils Percent Auto 4.4 % (0.9-7.0); Hematocrit 45.2 % (42.0-54.0); Hemoglobin 16.2 g/dL (14.0-18.0); Immature Granulocytes Abs Auto 0.03 10^3/uL (0.00-0.03); Immature Granulocytes Pct Auto 0.4 % (0.0-0.5); Lymphocytes Absolute Auto 1.6 10^3/uL (1.2-3.8); Lymphocytes Percent Auto 20.8 % (20.5-60.0); Mean Corpuscular HGB Conc 35.8 g/dL (29.9-35.2); Mean Corpuscular Hemoglobin 30.3 pg (25.9-34.0); Mean Corpuscular Volume 84.5 fL (80.0-94.0); Mean Platelet Volume 11.2 fL (9.5-13.5); Monocytes Absolute Auto 0.7 10^3/uL (0.3-0.8); Monocytes Percent Auto 9.3 % (1.7-12.0); Neutrophils Percent Auto 64.7 % (43.0-75.0); Platelet Count 159 10^3/uL (150-450); Red Blood Count 5.35 10^6/uL (4.70-6.10); Red Cell Distribution Width 12.6 % (11.0-15.0); White Blood Count 7.8 10^3/uL (4.0-11.0)
[2025-03-06 10:21] LABS: Anion Gap 13.5; BUN Creatinine Ratio 22.7; Calcium 8.6 mg/dL (8.5-10.1); Carbon Dioxide 27.2 mmol/L (21.0-32.0); Chloride 108 mmol/L (98-107); Estimated GFR (African America >60 (>=60 mL/min/1.73m^2); Estimated GFR (Non-African Ame >60 (>=60 mL/min/1.73m^2); Glucose 107 mg/dL (74-106); INR 1.12; Partial Thromboplastin Time 27.9 sec (22.3-36.2); Potassium 3.7 mmol/L (3.5-5.1); Prothrombin Time 11.7 sec (9.0-11.6); Sodium 145 mmol/L (136-145)
--- NOTE | 2025-03-06 12:24 | PM.PRESUREVA ---
History of Present Illness History of Present Illness Chief complaint: Left Kidney Stone Narrative: Patient presents for presurgical testing. The patient reports a history of hematuria. He states he passed kidney stones in the past and upon evaluation with Urology: Was diagnosed with another stone. He states he has intermittent frequency, urgency, and nocturia. The patient has MS, he feels well-controlled, although he notes the extreme heat does cause increased muscle weakness. He denies flank pain, dysuria, fever, nausea, vomiting, or any other complaints. Review of Systems ROS Narrative REVIEW OF SYSTEMS: Negative except as stated in HPI, ten or more systems reviewed. Constitutional: No fever, chills, weakness ENT: No sore throat or epistaxis Cardiovascular: No edema, chest pain, palpitations, or activity intolerance Respiratory: No shortness of breath, cough, or wheezing Gastrointestinal: No abdominal pain, constipation, diarrhea, or vomiting Genitourinary: No dysuria Psychiatric: No mood changes PFSH PFS Medical History (Updated 03/06/25 @ 09:36 by Sofi Lester NP) Multiple sclerosis ?G35 - Multiple sclerosis (ICD-10) Arthritis ?M19.90 - Unspecified osteoarthritis, unspecified site (ICD-10) Back pain ?M54.9 - Dorsalgia, unspecified (ICD-10) Insomnia ?G47.00 - Insomnia, unspecified (ICD-10) Depression ?F32.A - Depression, unspecified (ICD-10) Anxiety ?F41.9 - Anxiety disorder, unspecified (ICD-10) Sleep apnea ?G47.30 - Sleep apnea, unspecified (ICD-10) Migraine ?G43.909 - Migraine, unspecified, not intractable, without status migrainosus (ICD-10) Kidney stones ?N20.0 - Calculus of kidney (ICD-10) Diarrhea ?R19.7 - Diarrhea, unspecified (ICD-10) Nausea ?R11.0 - Nausea (ICD-10) GERD (gastroesophageal reflux disease) ?K21.9 - Gastro-esophageal reflux disease without esophagitis (ICD-10) Orthostatic hypotension ?I95.1 - Orthostatic hypotension (ICD-10) Surgical History (Updated 03/06/25 @ 09:38 by Sofi Lester NP) History of radiofrequency ablation (RFA) of nerve of lumbar spine ?Z98.890 - Other specified postprocedural states (ICD-10) S/P epidural steroid injection ?Z92.241 - Personal history of systemic steroid therapy (ICD-10) History of tonsillectomy ?Z90.89 - Acquired absence of other organs (ICD-10) History of colonoscopy ?Z98.890 - Other specified postprocedural states (ICD-10) History of cholecystectomy ?Z90.49 - Acquired absence of other specified parts of digestive tract (ICD-10) Family History (Updated 03/06/25 @ 09:36 by Sofi Lester NP) Other Family history of DVT Family history of breast cancer Family history of cancer Family history of diabetes mellitus Family history of hypertension Family history of myocardial infarction Social History (Updated 03/06/25 @ 09:50 by Sofi Lester NP) Within the past year, how often did you have a drink containing alcohol: 2-4 times a month Smoking status: Never smoker Non-prescribed substance use: cannabis (any form) 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 Highest level of school completed/degree received: high school graduate Meds Home Medications and Allergies Home Medications ?Medication ?Instructions ?Recorded ?Confirmed ?Type aripiprazole 15 mg tablet 15 mg PO DAILY 03/06/25 03/06/25 History atomoxetine 60 mg capsule 60 mg PO DAILY 03/06/25 03/06/25 History colestipol 1 gram tablet 2 g PO DAILY 03/06/25 03/06/25 History cyclobenzaprine 10 mg tablet 10 mg PO Q8H 03/06/25 03/06/25 History dicyclomine 20 mg tablet 20 mg PO BID 03/06/25 03/06/25 History fluoxetine 10 mg capsule 10 mg PO DAILY 03/06/25 03/06/25 History hydroxyzine pamoate 50 mg capsule 100 mg PO Q6H PRN anxiety 03/06/25 03/06/25 History loperamide 2 mg capsule 2 mg PO Q6H PRN loose stool 03/06/25 03/06/25 History midodrine 5 mg tablet 5 mg PO TID PRN hypotension 03/06/25 03/06/25 History mirabegron 50 mg tablet,extended 50 mg PO Q24H 03/06/25 03/06/25 History release 24 hr (Myrbetriq) naproxen 500 mg tablet 500 mg PO Q12H 03/06/25 03/06/25 History ocrelizumab 30 mg/mL intravenous 600 mg IV .yearly 03/06/25 03/06/25 History solution (Ocrevus) ondansetron HCl 4 mg tablet 4 mg PO Q12H PRN nausea and 03/06/25 03/06/25 History vomiting pantoprazole 40 mg tablet,delayed 40 mg PO DAILY 03/06/25 03/06/25 History release quetiapine 25 mg tablet 25 mg PO QPM 03/06/25 03/06/25 History tamsulosin 0.4 mg capsule 0.4 mg PO Q24H 03/06/25 03/06/25 History ubrogepant 100 mg tablet (Ubrelvy) 100 mg PO DAILY PRN migraine 03/06/25 03/06/25 History headache Allergies Allergy/AdvReac Type Severity Reaction Status Date / Time No Known Drug Allergies Allergy Verified 03/06/25 09:29 Exam Narrative Exam Narrative: Constitutional: Awake, alert, comfortable, well-appearing, nontoxic, interactive, vital signs as charted Head: Normocephalic, atraumatic Neck: Supple, normal appearance, normal range of motion, no meningeal signs, no lymphadenopathy Respiratory: No respiratory distress, breath sounds clear Cardiovascular: Regular rate and rhythm, strong and regular heart tones Abdomen: Nontender, normal bowel sounds, soft, no CVA tenderness Musculoskeletal: Normal gait, no swelling or edema Skin: No rashes or induration, no lesions, only visible skin inspected Neuro: Normal sensation, involuntary mouth movements noted Psychiatric: Oriented ?3, normal affect Assessment and Plan Assessment and Plan (1) Kidney stones: Plan Left ESWL scheduled with Dr. Malhotra March 16, 2025.
== END 2025-03-06 09:06 | disposition home or self-care (01) ==
LOC: PST 09:05
PROVIDERS: Visit Provider Urology
DX: Z01.810 Encounter for preprocedural cardiovascular examination (principal); Z01.812 Encounter for preprocedural laboratory examination; N20.0 Calculus of kidney
CPT/HCPCS: 36415; 80048; 85025; 85610; 85730; 93005; G0463

== ENCOUNTER 2025-03-16 09:04 | Day surgery (SDC) | payer OTHER, SELFPAY ==
--- OUTSIDE RECORDS SUMMARY | 2025-01-09 07:00 | XMS_ITS ---
Author Organization [facility] Address [address] [place] [address] Care Team Providers Care Classroom Paraprofessional Name Role Phone Miguelangel Juliana Primary Care Provider Gabi Urbina [phone] REASON FOR VISIT BH F/U Encounters Encounter Location Date Provider Diagnosis [facility] [address] [place] [address] 01/09/2025 Juliana Means Plan Of Treatment Next Appt Details Provider Name:Juliana Means , 03/28/2025 10:00:00 AM, [address], [place], [address], Provider Name:Leah Cain, 0 04/04/2025 08:00:00 AM, [address] , [place], [address], Progress Notes * BERLIN JENNINGS ADOB:1985 (39 yo M)Acc No.[id number]:01/09/2025 BH F/U - Patient Patient: BERLIN MARION Wale Provider: BRITTNY Peacock :1985 A ge:39 Y S ex:Male Date:01/09/2025 Address:[address], [address] , [id number] Subjective: * Chief Complaints: * 1 . BH F/U. Objective: Therapeutic Interventions: Assessment: Plan: * Images: Care Plan Details* * Electronic signature of BRITTNY Johnson on 03/16/2025 at 09:06 AM EDT Sign off status: Pending * Provider: BRITTNY Peacock Date: 01/09/2025 Generated for Augustus saxena/Chandrakant/Missael on: 0 03/16/2025 09:06 AM EDT
[2025-03-06 09:46] VITALS: BP 117/73; PULSE 66; TEMP 36.2; O2SAT 98; BMI 35.9
--- OUTSIDE RECORDS SUMMARY | 2025-03-08 23:59 | XMS_ITS | Continuity of Care Document ---
Author Organization [facility] Address Unknown Care Team Providers Care Assistant Surveyor Name Role Phone BERNIE KUO Primary Care Physician Encounter [facility] [id number] Date(s): 03/08/25 - 03/08/[address] [address] Discharge Disposition: Home (Routine DC) Attending Physician: Arnold OLIVO MD Admitting Physician: Arnold OLIVO MD Encounter Type: Outpatient Allergies, Adverse Reactions, Alerts Substance Criticality Severity Reaction Reaction Severity Status Seasonal Unknown Active Immunizations Given and Recorded Vaccine Date Status Refusal Reason influenza virus vaccine, inactivated 06/30/23 [place] rded influenza virus vaccine, inactivated 06/25/22 [place] rded influenza virus vaccine, inactivated 06/02/22 [place] rded SARS-CoV-2 (COVID-19) mRNA-1273 vaccine 06/02/22 R ecorded SARS-CoV-2 (COVID-19) Ad26 vaccine 09/03/21 Record ed SARS-CoV-2 (COVID-19) Ad26 vaccine 12/28/20 Record ed SARS-CoV-2 (COVID-19) Ad26 vaccine 11/30/20 Record ed Medications Abilify 15 mg Tab mg tab(s), Oral, Daily, Refills(s) 0 Start Date: 06/02/23 Status: Ordered Repeat number: 1 Bentyl 20 mg, Oral, Daily, Refills(s) 0 Start Date: 06/02/23 Status: Ordered Repeat number: 1 Cipro 500 mg Tab 500 mg = 1 tab(s), Oral, Daily, Take 1 tablet the day before the procedure and 1 tablet after the procedure, # 2 tab(s), Refills(s) 0, Pharmacy: [facility], 200, cm, 07/27/24 8:10:00 EST, Height/Length Dosing, 139, kg, 07/27/24 8:10:00 EST, Weight Dosing Start Date: 08/08/24 Status: Ordered Quantity: 2.0 Unit: tab(s) Repeat number: 1 Colestid 1 g oral tablet gm tab(s), Oral, BID, Refills(s) 0 Start Date: 10/14/21 Status: Ordered Repeat number: 1 cyclobenzaprine 10 mg Tab 10 mg = 1 tab(s), Oral, TID, PRN for spasm, # 30 tab(s), Refills(s) 0 Start Date: 10/14/21 Status: Ordered Quantity: 30.0 Unit: tab(s) Repeat number: 1 Immodium A-D 2 mg Tab mg tab(s), Oral, q4hr, Refills(s) 0 Start Date: 06/02/23 Status: Ordered Repeat number: 1 midodrine 5 mg Tab Refills(s) 0 Start Date: 06/02/23 Status: Ordered Repeat number: 1 mirabegron 50 mg oral tablet, extended release 50 mg = 1 tab(s), Oral, Daily, X 30 day(s), # 30 tab(s), Refills(s) 11, Pharmacy: [facility], 200, cm, 07/27/24 8:10:00 EST, Height/Length Dosing, 139, kg, 07/27/24 8:10:00 EST, Weight Dosing Start Date: 07/27/24 Stop Date: 07/22/25 Status: Ordered Quantity: 30.0 Unit: tab(s) Repeat number: 12 naproxen 500 mg Tab mg tab(s), Oral, BID, Refills(s) 0 Start Date: 10/14/21 Status: Ordered Repeat number: 1 Ocrevus mg, IV, q6mo, Refills(s) 0 Start Date: 06/02/23 Status: Ordered Repeat number: 1 Protonix 40 mg Tab-DR mg tab(s), Oral, Daily, Refills(s) 0 Start Date: 10/14/21 Status: Ordered Repeat number: 1 Strattera 60 mg Cap mg cap(s), Oral, qAM Start Date: 06/02/23 Status: Ordered Repeat number: 1 tamsulosin 0.4 mg Cap 0.4 mg = 1 cap(s), Oral, Daily, X 90 day(s), # 90 cap(s), Refills(s) 3, Pharmacy: [facility], 200, cm, 07/27/24 8:10:00 EST, Height/Length Dosing, 139, kg, 07/27/24 8:10:00 EST, Weight Dosing Start Date: 09/22/24 Stop Date: 09/17/25 Status: Ordered Quantity: 90.0 Unit: cap(s) Repeat number: 4 Ubrelvy 100 mg oral tablet Refills(s) 0 Start Date: 06/02/23 Status: Ordered Repeat number: 1 verapamil 180 mg ER Tab 180 mg = 1 tab(s), Oral, qAM Start Date: 07/27/24 Status: Ordered Repeat number: 1 Vistaril 50 mg Cap mg cap(s), Oral, QID, Refills(s) 0 Start Date: 06/02/23 Status: Ordered Repeat number: 1 Vitamin D3 2000 intl units oral Tab 50 mcg, Oral, Daily, tab(s), Refills(s) 0 Start Date: 10/14/21 Status: Ordered Repeat number: 1 Zofran 4 mg Tab mg tab(s), Oral, q8hr, Refills(s) 0 Start Date: 06/02/23 Status: Ordered Repeat number: 1 Problem List Condition Confirmation Course Effective Dates Status H ealth Status Informant Anxiety Confirmed Active Asymptomatic microscopic hematuria Confirmed Active BPH without urinary obstruction Confirmed Active Cyst of epididymis Confirmed Resolved Epididymal cyst Confirmed Active Testicular cyst Confirmed Active Urinary hesitancy Confirmed Active Depression Confirmed Active Penile discharge Confirmed Active Chronic GERD Confirmed Active Hypertension Confirmed Active Incomplete bladder emptying Confirmed Active Multiple sclerosis Confirmed Active OAB (overactive bladder) Confirmed Active Testicle pain Confirmed Resolved Post-void dribbling Confirmed Active Testicle lump Confirmed Resolved Urge incontinence Confirmed Active Procedures Procedure Date Related Diagnosis Body Site Status Cholecystotomy Completed Colonoscopy Completed Tonsillectomy Completed Social History Social History Type Response Smoking Status Never (less than 100 in lifetime); Tobacco Use: medical marjuana;Never entered on: 07/27/24 Sex Male Sex Representation Male (finding) Patient Care team information Care Team Personnel Name: BERNIE KUO MD Position: FT Physician Member Role: Primary Care Physician Address: [address] [place] [address] Telecom: Care Team Related Persons Name: LORENZO JENNINGS Name: LORENZO JENNINGS Name: SHANI JENNINGS Name: SHANI JENNINGS Insurance Providers Guarantor name: BERLIN Echevarria JENNINGS Health Plan Information #: 1 Payer: NA Payer Identifier: [id number] Member Number: [id number] Group Number: [id number] Subscriber Identifier: [id number] Relationship to Subscriber: Self Coverage Type: MEDICAID Coverage Verification Date: 24 Telecom: NA Address:
[2025-03-16] VITALS (8 sets, daily range): BP systolic 115–140; BP diastolic 72–92; PULSE 51–68; TEMP 36.1–36.2; O2SAT 92–97; BMI 36.8
--- OUTSIDE RECORDS SUMMARY | 2025-03-16 09:07 | XMS_ITS | Clinical Summary ---
Author Organization [facility] Address [address] [place] [address] Care Team Providers Care Window And Door Installer Name Role Phone Catherine Quiroz MD Primary Care Provider [phone] Allergies Active Allergy Reactions Criticality Noted Date [...] d ifferent from the original. MBS Checklist [facility] Weight Management Surgeon: Connie Procedure: sleeve ERAS [...] 1:57 PM 08/19/2018 11:41 AM Care Teams Window And Door Installer Relationship Specialty Start Date End Date Catherine Quiroz MD PCP - General Family Medicine 08/04/18
--- OUTSIDE RECORDS SUMMARY | 2025-03-16 09:07 | XMS_ITS | Clinical Summary ---
Author Organization [facility] Address [address] [place] [address] Phone Care Team Providers Care Promotion Writer Name Role Phone CiaraBrian morgan Primary Care Provider [phone] Allergies No known active allergies Medications cholecalciferol [...] Type Department Care Team Description 03/03/[address] [address] Quita Eagle LPN H/O orthostatic hypotension 02/03/2025 11:20 AM EDT Office Visit [address] [address] Mike Chavira MD H/O orthostatic hypotension (Primary Dx); Palpitations; Adult BMI 33.0-33.9 kg/sq m; Multiple sclerosis (Multi); Autonomic failure; Dizziness; Never smoked tobacco 02/03/2025 Travel 01/30/2025 Scanned Document [facility] [address] [place] [place] [id number] Scanning, Generic Provider from Last 3 Months [...] Description 09/28/2025 3:00 PM EST Office Visit [facility] [address] [place] [address] Mike Chavira MD [address] [place] [address] Health Maintenance Due Date Last Done Comments [...] age to complete this topic HPV Vaccines (No Doses Required) Completed Hepatitis A Vaccines Aged Out No long [...] patient's age to complete this topic Insurance [facility] Care Teams Promotion Writer Relationship Specialty Start Date End Date Brian Urbina DO [address] [place] [address] PCP - General Family Medicine 02/03/25
--- OUTSIDE RECORDS SUMMARY | 2025-03-16 09:07 | XMS_ITS | Encounter Summary ---
Author Organization [facility] Address [address] [place] [address] Phone Care Team Providers Care Windows Admin Name Role Phone Catherine Quiroz MD Primary Care Provider [phone] Brian Urbina DO Primary Care Provider [phone] Encounter Details Date Type Department Care Team (Late st Contact Info) Description 01/30/2025 Scanned Document [facility] [address] [place] [id number] Scanning, Generic Provider Social History Tobacco Use [...] Description 09/28/2025 3:00 PM EST Office Visit [facility] [address] [facility] [address] [place] [address] Mike Chavira MD [address] [facility] [address] [place] [address] documented as of this encounter Visit Diagnoses Not on filedocumented in this encounter Care Teams Windows Admin Relationship Specialty Start Date End Date Catherine Quiroz MD [address] [place] [address] PCP - General Family Medicine 12/22/23 02/02/25 Brian Urbina DO [address] [place] [address] PCP - General Family Medicine 02/03/25 documented as of this encounter
--- OUTSIDE RECORDS SUMMARY | 2025-03-16 09:07 | XMS_ITS | Encounter Summary ---
Author Organization [facility] Address [address] [place] [address] Phone Care Team Providers Care Telescope Repairer Name Role Phone Catherine Quiroz MD Primary Care Provider [phone] Catherine Quiroz MD Primary Care Provider [phone] Brian Urbina DO Primary Care Provider [phone] Encounter Details Date Type Department Care Team (Late st Contact Info) Description 07/02/2022 Orders Only [facility] [address] [place] [address] Conversion, Onbase Social History Tobacco Use Types [...] Description 09/28/2025 3:00 PM EST Office Visit [facility] [address] [facility] [address] [place] [address] Mike Chavira MD [address]03 [facility] [address], [address] [place] [address] Scheduled Orders Name Type Priority Associated Diagnoses Orde r Schedule OUTSIDE LAB SCAN Lab Ordered: 07/02/2022 OUTSIDE LAB SCAN Lab Ordered: 07/02/2022 documented as of this encounter Visit Diagnoses Not on filedocumented in this encounter Care Teams Telescope Repairer Relationship Specialty Start Date End Date Catherine Quiroz MD [address] [facility] [place] [address] PCP - General 09/14/19 12/21/23 Catherine Quiroz MD [address] [facility] [place] [address] PCP - General Family Medicine 12/22/23 02/02/25 Brian Urbina DO [address] [place] [address] PCP - General Family Medicine 02/03/25 documented as of this encounter
--- OUTSIDE RECORDS SUMMARY | 2025-03-16 09:07 | XMS_ITS | Encounter Summary ---
Author Organization [facility] Address [address] [place] [address] Phone Care Team Providers Care Capacitor Repairer Name Role Phone Catherine Quiroz MD Primary Care Provider [phone] Brian Urbina DO Primary Care Provider [phone] Encounter Details Date Type Department Care Team (Late st Contact Info) Description 02/25/2024 Scanned Document [facility] [address] [place] [id number] Scanning, Generic Provider Social History Tobacco Use [...] Description 09/28/2025 3:00 PM EST Office Visit [facility] [address] [facility] [address] [place] [address] Mike Chavira MD 703 [facility] 2, [address] [place] [address] documented as of this encounter Visit Diagnoses Not on filedocumented in this encounter Care Teams Capacitor Repairer Relationship Specialty Start Date End Date Catherine Quiroz MD [address] [place] [address] PCP - General Family Medicine 12/22/23 02/02/25 Brian Urbina DO [address] [place] [address] PCP - General Family Medicine 02/03/25 documented as of this encounter
--- OUTSIDE RECORDS SUMMARY | 2025-03-16 09:07 | XMS_ITS | Encounter Summary ---
Author Organization [facility] Address [address] [place] [address] Phone Care Team Providers Care Certified Nurse Aide Name Role Phone Catherine Quiroz MD Primary Care Provider [phone] Catherine Quiroz MD Primary Care Provider [phone] Brian Urbina DO Primary Care Provider [phone] Encounter Details Date Type Department Care Team (Late st Contact Info) Description 01/21/2022 Orders Only [facility] [address] [place] [address] Conversion, Onbase Social History Tobacco Use Types [...] Description 09/28/2025 3:00 PM EST Office Visit [facility] [address] [facility] [address] [place] [address] Mike Chavira MD [address]03 [facility] [address], [address] [place] [address] Scheduled Orders Name Type Priority Associated Diagnoses Orde r Schedule OUTSIDE LAB SCAN Lab Ordered: 01/21/2022 documented as of this encounter Visit Diagnoses Not on filedocumented in this encounter Care Teams Certified Nurse Aide Relationship Specialty Start Date End Date Catherine Quiroz MD [address] [place] [address] [place] [address] PCP - General 09/14/19 12/21/23 Catherine Quiroz MD [facility] [facility] [place] [address] PCP - General Family Medicine 12/22/23 02/02/25 Brian Urbina DO [address] [place] [address] PCP - General Family Medicine 02/03/25 documented as of this encounter
--- OUTSIDE RECORDS SUMMARY | 2025-03-16 09:07 | XMS_ITS | Patient Health Record ---
Author Organization [facility] Address [address] [place] [address] Care Team Providers Care Waiter/Waitress Counter Name Role Phone Juliana Means Primary Care Provider [phone] Ciara Gabi Unavailable [phone] Leah Cain Unavailable [phone] Allergies Allergen (clinical drug ingredient) Drug/Non Drug [...] MG 1 capsule Orally Onc e a day; Duration: 30 day(s) 02/25/2023 Not-Taking QUEtiapine Fumarate 25 MG 1 tablet at be dtime Orally Once a day 09/05/2024 Active Vitamin D3 Active Colestid Active Atomoxetine HCl 60 MG 1 capsule Orally O nce a day Active Pantoprazole Sodium 40 MG 1 tablet Orall y Once a day Active Sentry Active pyRIDostigmine [place]arm 60 MG 1 tablet Orally twice a [...] MG 1 capsule Orally On ce a day; Duration: 30 days 07/12/2024 Active Naproxen 500 MG 1 tablet with food o r milk Orally Twice a day Active Colestipol HCl 1 GM 2 tablets Orally daily Active hydrOXYzine Pamoate 50 MG 1 to 2 capsule s Orally every six hours; Duration: 30 days Active ARIPiprazole 15 MG 1 tablet Orally Once a day; Duration: 90 days Active busPIRone HCl 15 MG [...] W/U Status Risk Notes Problem Mood disorder (32020639) Mood disorder (F39) Active confirmed Problem Obese class II (80487359790857 5) BMI 35.0-35.9,adult (Z68.35) Active confirmed Problem Body mass index 30.00 to 34.99 (67925899551176 7) BMI 34.0-34.9,adult (Z68.34) Active confirmed Problem Obese class I (80813006026103 7) BMI 33.0-33.9,adult (Z68.33) Active confirmed Problem BMI 30+ - obesity (630902068) BMI 32.0-32.9,adult (Z68.32) Active confirmed Problem Body mass index 30.00 to 34.99 (36780633314831 7) BMI 31.0-31.9,adult (Z68.31) Active confirmed Problem Body mass index 30+ - obesity (138294728) BMI 30.0-30.9,adult (Z68.30) Active confirmed Problem Recurrent major depression (63968893) Major depressive disorder, recurrent episode with anxious distress (F33.9) Active confirmed Vital Signs Heart Rate 89 /min 01/03/2025 Oximetry 97 % 01/03/2025 Blood pressure diastolic 66 mm Hg 01/03/2025 Height 6 ft 7 inches in 01/03/2025 Blood pressure systolic 116 mm Hg 01/03/2025 Weight 310.2 lbs 01/03/2025 BMI 34.94 kg/m2 01/03/2025 Encounters Encounter Location Date Provider Diagnosis [facility] [address] [place] [address] 10/14/2024 Juliana Means Mood disorder 9 [facility] [address] [place] [address] 10/28/2024 Juliana Means Major depressive disorder, recurrent episode with anxious distress F33.9 [facility] [address] [place] [address] 11/24/2024 Juliana Means Major depressive disorder, recurrent episode with anxious distress F33.9 and Mood disorder 9 [facility] [address] [place] [address] 01/30/2025 Juliana Means Major depressive disorder, recurrent episode with anxious distress F33.9 [facility] [address] [place] [address] 02/28/2025 Juliana Means Major depressive disorder, recurrent episode with anxious distress F33.9 and Mood disorder F39 [facility] [address] [place] [address] 07/20/2024 Juliana Means Major depressive disorder, recurrent episode with anxious distress F33.9 [facility] [address] [place] [address] 08/03/2024 Juliana Means Major depressive disorder, recurrent episode with anxious distress F33.9 [facility] [address] [place] [address] 08/19/2024 Juliana Means Mood disorder F39 [facility] [address] [place] [address] 09/02/2024 Juliana Means Major depressive disorder, recurrent episode with anxious distress F33.9 [facility] [address] [place] [address] 09/20/2024 Juliana Means Major depressive disorder, recurrent episode with anxious distress F33.9 [facility] [address] [place] [address] 09/30/2024 Juliana Means Mood disorder F39 [facility] [address] [place] [address] 04/12/2024 Juliana Means Major depressive disorder, recurrent episode with anxious distress F33.9 [facility] [address] [place] [address] 04/26/2024 Juliana Means Major depressive disorder, recurrent episode with anxious distress F33.9 and Mood disorder F39 [facility] [address] [place] [address] 05/10/2024 Juliana Maens Mood disorder F39 [facility] [address] [place] [address] 05/31/2024 Juliana Means Major depressive disorder, recurrent episode with anxious distress F33.9 [facility] [address] [place] [address] 06/20/2024 Juliana Means Major depressive disorder, recurrent episode with anxious distress F33.9 [facility] [address] [place] [address] 07/05/2024 Juliana Miguelangel Mood disorder F39 and Major depressive disorder, recurrent episode with anxious distress F33.9 [facility] [address] [place] [address] 05/03/2024 Leah Cain Mood disorder F39 and BMI 33.0-33.9,adult Z68.33 [facility] [address] [place] [address] 07/12/2024 Leah Cain Mood disorder 9 [facility] [address] [place] [address] 10/11/2024 Leah Cain Mood disorder 9 [facility] [address] [place] [address] 01/03/2025 Leah Cain Mood disorder 9 [facility] [address] [place] [address] 12/26/2024 Leah Cain Mood disorder 9 [facility] [place] [address] 01/24/2025 Leah Cain Mood disorder 9 [facility] [place] [address] 01/31/2025 Leah Cain Mood disorder 9 [facility] [address] [place] [address] 02/10/2025 Leah Cain Mood disorder 9 [facility] [place] [address] [place] [address] 02/21/2025 Juliana Means [place] [address] [place] [address] 08/18/2024 Leah Cain Mood disorder 9 [facility] [place] [address] 09/02/2024 Leah Cain Mood disorder 9 [facility] [address] [place] [address] 09/05/2024 Leah Cain Mood disorder 9 [facility] [address] [place] [address] 09/21/2024 Leah Cain Mood disorder 9 [facility] [address] [place] [address] 11/14/2024 Leah Cain Mood disorder 9 [facility] [address] [place] [address] 12/01/2024 Leah Cain Mood disorder 9 [facility] [address] [place] [address] 04/13/2024 Leah Cain Mood disorder 9 [place] [address] [place] [address] 07/01/2024 Leah Cain Mood disorder 9 [place] [address] [place] [address] 07/26/2024 Leah Cain Assessments Encounter Date Diagnosis (ICD Code) Assessment Notes Treatment Notes Treatment Clinical Notes Section Notes 05/03/2024 Mood disorder (ICD-10 - F39) Recommended [...] increasing protein as appropriate. Discussed referral to water well driller if problem persists. . 05/10/2024 Mood disorder [...] Provider Name:Juliana Means , 03/28/2025 10:00:00 AM, [address], [place], [address], Provider Name:Leah Cain, 0 04/04/2025 08:00:00 AM, [address] [facility] [address], [place], [address], Insurance Providers Payer Name Payer Address Payer Phone Subscriber Number Group Number Insured Name Patient Relationship to Insured Coverage Start Date Coverage End Date [employer] [place] [employer] [address] [place] [address] [id number] BERLIN JENNINGS Self - patient is the insured 3 [facility] [address] [place] [address] [id number] BERLIN JENNINGS Self - patient is the insured 3 [facility] [employer] [address] [place] [address] [id number] BERLIN JENNINGS Self - patient is the insured 2 3 [employer] MEDICAID [employer] after [employer] [address] [place] [address] [id number] BERLIN JENNINGS Self - patient is the insured 2 3 Medical (General) History Medical History History ICD Code muscle spasm orthostatic dizziness acute hearing loss tinnitus, left insomnia, transient multiple sclerosis Surgical History Surgery Date(Month/Year) colonoscopy cyst removal right arm reset labrum repair t&A cholecystectomy
--- OUTSIDE RECORDS SUMMARY | 2025-03-16 09:07 | XMS_ITS | Encounter Summary ---
Author Organization [facility] Address [address] 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
--- OUTSIDE RECORDS SUMMARY | 2025-03-16 09:07 | XMS_ITS | Encounter Summary ---
Author Organization [facility] Address [address] [place] [address] Phone Care Team Providers Care Lead Php Developer Name Role Phone Catherine Quiroz MD Primary Care Provider Catherine Quiroz MD Primary Care Provider [phone] Brian Urbina DO Primary Care Provider Encounter Details Date Type Department Care Team (Late st Contact Info) Description 11/17/2023 Scanned Document [facility] [address] [place] [address] Scanning, Generic Provider Social History Tobacco Use [...] Description 09/28/2025 3:00 PM EST Office Visit [facility] [address] [facility] [address] [place] [address] Mike Chavira MD [address] [facility] [address] [place] [address] documented as of this encounter Visit Diagnoses Not on filedocumented in this encounter Care Teams Lead Php Developer Relationship Specialty Start Date End Date Catherine Quiroz MD 1255 [facility] [place] [address] PCP - General 09/14/19 12/21/23 Catherine Quiroz MD [facility] [facility] [place] [address] PCP - General Family Medicine 12/22/23 02/02/25 Brian Urbina DO [address] [place] [address] PCP - General Family Medicine 02/03/25 documented as of this encounter
--- NOTE | 2025-03-16 09:30 | XR_ITS ---
The [address] [address] Patient Name: BERLIN JENNINGS MRN: [id number] date: 1985 Sex: M Assigned [facility] Current Patient Location: [facility] Accession/Order Number: [id number] Exam Date: 03/16/2025 09:33 Report Date: 03/16/2025 09:35 At the request of: ROSEANNA OLIVO MD Procedure: XR abdomen 1V SINGLE VIEW ABDOMEN CLINICAL DATA: Preoperative planning in patient with kidney stones. COMPARISON: CT 07/01/2018 Supine views of the abdomen and pelvis were obtained. There is air within colon and small bowel, without disproportionate distention. The right kidney is partially obscured. No obvious radiopaque stones are seen on the right. On the left, there may be a 7 mm stone at the midpole. No suspect ureteral calculi are identified. There are no soft tissue masses. The bony structures are intact. XR/XR abdomen 1V IMPRESSION: POSSIBLE LEFT NEPHROLITHIASIS. IF THERE ARE MORE RECENT COMPARISON STUDIES, CORRELATION IS SUGGESTED. Impression dictated by: Nahed Grajeda M.D. 03/16/2025 9:35 AM Dictation Location: [place] [address] Electronically authenticated by: [id number] Y Date: 03/16/2025 09:35
[2025-03-16] MEDS: CEFAZOLIN SODIUM 2 GM/50 ML D5W PREMIX IV (10:43)
--- NOTE | 2025-03-16 11:25 | P.URON_ITS ---
Urology Surgery Operative Note Operative Note Procedure Date: 03/16/25 Time Out Performed: yes Pre-op Diagnosis: Left nephrolithiasis Post-op Diagnosis: same as pre-op Procedures performed: 1. Left ESWL. Anesthesia: General-LMA Primary Surgeon: Arnold Malhotra Complications: None Estimated blood loss (mL): 0 Specimens: None none Drains: None Indications for Procedures: This gentleman was found to have bilateral nephrolithiasis. The larger stone burden was on the left side. It was measured up to 8 mm in size. He now presents for left ESWL. He has signed an informed consent after risks were explained. Some of these risks include bleeding, perinephric hematoma, infection and anesthesia to name a few. Detailed description of Procedure: The patient was brought to the Operating Room and placed on Siemens electromagnetic lithotripsy treatment table in the supine position. SCDs were placed on their lower extremities and turned on and functioning during the entire case. Timeout was done by all parties in the room. We all agreed upon the patient's identification and the planned procedures for this patient. Gen eral Anesthesia was then administered via LMA. Treatment head was then brought to the patient's correct side. While using flourscopy the stone was identified and lined up into the crosshairs. We then began applying shocks. I started at power level 2.0 and increased to a maximum power level of 3.5. Intermittent fluoroscopy revealed that the stone was slow to fragment. It was not until approximately 2000 shocks that we began seeing fragmentation. We applied a total of 3000 shocks. The last fluoroscopic image revealed no evidence of any formed stone remaining. The procedure was then terminated. He was then transferred to a [facility] bed and wheeled to PACU in stable condition.
--- NOTE | 2025-03-16 12:06 | PC.NURSE ---
Bruising noted left flank area
== END 2025-03-16 13:04 | disposition home or self-care (01) ==
LOC: SURGOUT 09:04
PROVIDERS: Visit Provider Urology
PROC: (CPT 873; principal; 2025-03-16 10:30)
DX: N20.0 Calculus of kidney (principal); G35 Multiple sclerosis; N40.0 Benign prostatic hyperplasia without lower urinary tract symptoms; F32.A Depression, unspecified; K21.9 Gastro-esophageal reflux disease without esophagitis; F41.9 Anxiety disorder, unspecified; R31.9 Hematuria, unspecified; I10 Essential (primary) hypertension; J30.2 Other seasonal allergic rhinitis; Z90.49 Acquired absence of other specified parts of digestive tract; Z79.899 Other long term (current) drug therapy; G47.33 Obstructive sleep apnea (adult) (pediatric); F17.210 Nicotine dependence, cigarettes, uncomplicated
CPT/HCPCS: 50590; 36415; 74018; J0690; J1100; J1885; J2250; J2405; J2704; J3010